=== PATIENT | female | born 1990 | race Asian ===

== ENCOUNTER 2025-06-07 01:23 | Observation (INO) | payer OTHER, SELFPAY ==
[2025-06-06 14:09] VITALS: BP 150/91
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
[2025-06-06 16:19] LABS: HCG, Serum Qualitative Screen Positive
[2025-06-06 16:39] LABS: Hematocrit 42.4 % (37.0-47.0); Hemoglobin 13.8 g/dL (12.0-16.0); Mean Corp Hgb Conc. 32.5 g/dL (33.0-37.0); Mean Corpuscular Volume 76.8 fL (81.0-99.0); Nucleated Red Blood Cells % 0 %; Platelet Count 289 10^3/uL (130-400); Red Cell Dist. Width 12.5 % (11.5-14.5)
[2025-06-06 17:13] LABS: ALT (SGPT) 15 U/L (0-35); AST (SGOT) 30 U/L (14-36); Acetaminophen < 10 ug/ml (10-30); Albumin 5.3 g/dl (3.5-5.0); Alkaline Phosphatase 97 U/L (38-126); Blood Urea Nitrogen 18 mg/dl (7-17); Calcium 10.6 mg/dl (8.4-10.2); Carbon Dioxide 16 mmol/L (22-30); Chloride 109 mmol/L (98-107); Glucose 93 mg/dl (70-99); Potassium 4.3 mmol/L (3.5-5.1); Salicylate < 1.0 mg/dl (2.0-20.0); Sodium 139 mmol/L (135-145); Total Protein 9.4 g/dl (6.3-8.2); eGFR > 60.00
[2025-06-06 17:26] LABS: Beta HCG Quantitative 157.14 mIU/ml
[2025-06-06 18:25] LABS: Urine Character Clear (Clear)
[2025-06-06 18:45] LABS: Urine Squamous Cell 0-2 /LPF (Few)
[2025-06-06 18:46] LABS: Urine Red Blood Cell 0-2 /HPF (0-2)
[2025-06-06 19:18] VITALS: BP 146/100
[2025-06-06 19:46] VITALS: BMI 24.2
[2025-06-06 20:38] VITALS: BP 148/100
[2025-06-06 21:52] VITALS: BP 129/91
[2025-06-06] MEDS: NSS 1000 IV (21:56)
[2025-06-06 22:29] LABS: Venous Blood Gas B.E. -1.0 mmol/L (-4 to +4); Venous Blood Gas O2 Sat % 87.4 %
[2025-06-06 23:50] VITALS: BP 125/79
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
[2025-06-07] MEDS: NSS 1000 IV (00:05)
[2025-06-07 00:54] VITALS: BP 125/88
[2025-06-07] MEDS: ZOFRAN 4 MG IV (02:29)
[2025-06-07 02:32] VITALS: BP 125/92
[2025-06-07 03:03] VITALS: BMI 24.8
[2025-06-07 07:50] VITALS: BP 139/99
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
[2025-06-07 13:08] VITALS: BMI 24.8
[2025-06-07] MEDS: ROCEPHIN IV (14:19)
[2025-06-07] MEDS: STERILE WATER FOR INJECTION IV (14:19)
[2025-06-07 15:40] VITALS: BP 134/93
[2025-06-07] MEDS: SEROQUEL 50 MG PO ×2 (17:03→22:18)
[2025-06-07] MEDS: STERILE WATER FOR INJECTION 10 ML IV (17:12)
[2025-06-07] MEDS: ROCEPHIN 1000 MG IV (17:12)
[2025-06-07] MEDS: FLUSH (NSS) 2 FLUSH IV (17:12)
[2025-06-07 23:00] VITALS: BP 138/95
[2025-06-08 07:12] VITALS: BP 139/97
[2025-06-08] MEDS: ATIVAN 1 MG IV (12:45)
[2025-06-08] MEDS: FLUSH (NSS) 2 FLUSH IV ×2 (12:49→18:27)
--- NOTE | 2025-06-08 14:46 | W.PN.UPDATE ---
Update Note
Progress Note Update
Patient finally agreed to have her MRI done but is sedated from the Ativan. Apparently after taking the Seroquel last night she slept well but in the AM was still paranoid and agitated. Family is very uninterested in impatient treatment worrying
about the environment there as well as not being able to be with her constantly . The whole extended family is with her now and her parent actually live with her . It is also true that admission to an inpatient psychiatric facility for someone who
is is challenging to say the least.
Presently the patient is not acutely psychotic and is cooperative with taking medications. They understand the potential side effects of the Seroquel as well as possible teratogenic effects.
I discussed the situation with the hospitalist Dr. Leong and the plan now is as long she she does not significantly decompensate to discharge home with Seroquel 50 mg bid. I will ask the psychiatrist on duty tomorrow to see her and provided
them with referral options and also get input from CM.
--- NOTE | 2025-06-08 15:01 | W.PN.HOSP.TC ---
Today's Communication/Plan
-
Assessment / Plan
Assessment / Plan
General: No Apparent Distress, Comfortable
HEENT: NormoCephalic, Moist mucous membranes, Atraumatic
Respiratory: Clear and Non Labored Respirations
Cardiac: S1/S2 and Regular Rhythm; No Rub or Gallop
GI: Soft, Non Tender, Non Distended and Normal Bowel Sounds
Musculoskeletal: No Edema, no deformity
Skin: Warm and dry
: NO Christensen
Neuro: Awake, Alert, Nonfocal/grossly intact
Psych: Flight of ideas, paranoid
Ms. Lizarraga is a 34-year-old female with a medical history of iron deficiency anemia (on oral iron supplementation) who presented due to acute behavioral changes. Her family is at bedside and very helpful in augmenting the HPI. 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 Apparently she has been having paranoid thoughts and delusions that started during an Uber ride to the airport in
[facility]. The patient believed her [employer] o[employer] company driver was attempting to change the destination in her phone in order to bring her somewhere other than to the airport. She also thinks that her phone might be bugged and is paranoid that people are working
against her. She has not eaten or slept since returning home. She appears to be having a manic/acute psychotic episode. She has no prior psychiatric history. Her workup for organic reversible causes of her symptoms have so far been unremarkable.
She had a mild leukocytosis, bacteriuria, and a mildly low serum bicarb level. She has no urinary symptoms. Her mild metabolic acidosis is likely due to starvation ketosis considering her poor recent p.o. intake. CT imaging of the brain was
unremarkable. She did have a positive test, which she was already aware of because she had taken a test at home. She has remained afebrile and normotensive. The ED physician discussed admission for medical observation with the patient,
her , and psychiatry. She has been admitted for further evaluation and management.
Acute psychotic episode:
- No psychiatric history, appears to be her first episode
- No organic causes to otherwise explain her presentation, toxicology screen is negative, CT brain unremarkable, MRI brain is likely of little value but was ordered anyway and results are pending
- May possibly have a UTI which at most could have contributed to triggering the psychotic episode although this is doubtful, however would treat this with 5-7 days of antibiotics only considering her positive test
- Patient is extremely paranoid with flight ideas and requiring frequent redirection, does not have capacity for medical decision making at this time and should not be allowed to leave AGAINST MEDICAL ADVICE
- Psychiatry recommending treatment with Seroquel 50 mg twice daily, if remains stable/improved tomorrow morning 06/09 would be reasonable to discharge her home in the care of her family
- Have discussed extensively with family need to be sure she takes her medications, if she deteriorates or if they have difficulty caring for they should bring her back to the emergency department with the expectation that she would need involuntary
commitment for ongoing psychiatric care
- Case management aware of the plan and will provide family resources for outpatient psychiatric follow-up
Mild gapped metabolic acidosis:
- Bicarb of 16, suspect starvation ketosis in the setting of very poor recent p.o. intake
- Was bolused 2 L resuscitative fluids, remains hemodynamically stable
- Patient currently not cooperating with repeat labs
- Patient has agreed to some p.o. intake with encouragement
DVT prophylaxis: SCDs
CODE STATUS: Full code
Total time spent on today's encounter was 55 minutes
Anticipated Discharge: 24 - 48 hours
Subjective/Interval History
-
Date of Service: June 08, 2025
Patient was seen and examined at bedside this morning. Appears more calm today. Started on Seroquel yesterday.
Objective Data
-
Vital Signs:
Vital Signs
Temp Pulse Resp BP Pulse Ox
98.8 F 106 16 139/97 100
06/08/25 07:12 06/08/25 07:12 06/08/25 07:12 06/08/25 07:12 06/08/25 07:12
I&O
06/07/25 06/08/25 06/09/25
06:59 06:59 06:59
Intake Total 480 / 480
Balance 480 / 480
Review of Systems
-
Unable to obtain full review of systems at this time due to: Other (Patient unwilling to discuss)
Physical Exam
-
General: No Apparent Distress
[2025-06-08 15:55] VITALS: BP 133/85
[2025-06-08] MEDS: STERILE WATER FOR INJECTION 10 ML IV (18:27)
[2025-06-08] MEDS: ROCEPHIN 1000 MG IV (18:27)
[2025-06-08] MEDS: SEROQUEL 50 MG PO (20:20)
[2025-06-08 23:00] VITALS: BP 125/86
[2025-06-08 23:14] VITALS: BP 125/86
[2025-06-09 07:12] VITALS: BP 134/86
[2025-06-09] MEDS: SEROQUEL 50 MG PO (08:13)
--- NOTE | 2025-06-09 10:14 | W.PN.UPDATE ---
Update Note
Progress Note Update
pt seen by me today, also saw her father, brother (abrasive sawyer) and . 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
While in uber to airport became paranoid that uber hearse driver was not taking her to the right place, feared assault. Called who calmed her down, got her to plane and home, picked her up at airport. Dis not want to eat or drink went she got
home. Brought her to hospital for evaluaion, where paranoia was still noted. Has been on seroquel 50 mg bid, calmer.
Wants to go home, family supports this, many family members there.
No prior history of psychosis, but had seen therapist 5 years ago due to excessive worry about surgery for hyperparathyroidism. did well with therapy and with surgery, has had followup labs with PCP, per have been fine.
Had miscarriage 2 years ago at 6 weeks, not sure why.
On exam today patient is pleasant but just a bit guarded. Reassures me that she is fine, wants ot go home to her 4 yo son to make sure he is well fed (said this twice.) son had had delivery complications ,was in NICU for two and a half weeks.
Does not have an explanation for her paranoia, but does not want to talk much about it. I asked her about her life and development, assures me all was normal. when I asked specific questions mentioned some bullying.
I had asked pt about other medical problems or previous psychiatric care, denied all. was the one who told me about her parathyroid surgery and previous therapy.
Calcium 10.6, UA shows many bacteria.
Case discussed with primary Dr. Wagner, will consider getting additional testing or referrals for further ob, endocrine care.
I recommend continued seroquel, will see about followup this week here.
--- NOTE | 2025-06-09 10:29 | CM ---
CM following re: discharge planning.
Reviewed pt's chart, met with pt. Pt's , pt's son, pt's brother and pt's father at bedside. Pt's is a pharmacist and pt's brother is a MD.
Pt is a 34 year old female, admitted with OBS status and primary dx of new onset of paranoia. OBS status explained to the pt and her family, pt politely declined to sign, has a copy, OBS letter placed on chart.
Pt reports she lives with and 4 year old son in a 2SH, 1 step to enter, has supportive family. 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 Pt denied psychiatric
history and did state that she had psychotherapy services right before her thyroid surgery 4 years ago and pt stated is was for a short period of time when she was very anxious about her surgery.
Psychiatry evaluation noted, medical and psychosocial components might contribute to pt's paranoia. Medical follow ups with outpatient psychiatric services including psychiatrist, IOP recommended. Both pt and her family strongly agree to follow up
with Dr. Chan Smith this week. Printed information with phone numbers of recommended psychiatrists Dr. Mansi Cyr MD and Bhmui Charels MD given to the pt. Also, pt is referred to [facility].
[facility]: [facility]. Pt stated last time she had an appointment with her PCP last year.
Pharmacy: [facility].
D/C plan: home with [facility], psychiatrist to follow up this week, PCP to follow up and family support. to transport.
--- NOTE | 2025-06-09 11:10 | W.DS.TRANS ---
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
-
Discharge Instructions:
Discharge Diagnosis/Procedures Acute psychosis with ongoing work up
Diet Regular
Instructions:
Stand-Alone Forms:
Changes to Home Medications: Yes
Discharge Medications:
DC Medications w/original date entered in datatracker
ferrous sulfate 325 mg (65 mg iron) tablet (iron) 325 mg PO DAILY Supplement 06/07/25
[id number] 1 mg tablet See Rx Instructions .Route .COMPLEX Supplement 06/07/25
cephalexin 500 mg capsule 500 mg PO Q12H #6 caps 06/09/25
quetiapine 25 mg tablet 50 mg (2 x 25 mg) PO BID #60 tabs 06/09/25
Home Medication Changes
Seroquel, Cephalexin added
Pending Results: Yes
Additional Pending Results:
Intact PTH, Ionized Ca
[2025-06-09] MEDS: STERILE WATER FOR INJECTION IV (12:00)
[2025-06-09] MEDS: ROCEPHIN IV (12:00)
[2025-06-09 12:41] VITALS: BP 133/93
== END 2025-06-09 13:10 | disposition home or self-care (01) ==
LOC: 2 NORTH 01:23
PROVIDERS: ADMITTING PHYSICIAN Internal Medicine; ATTENDING PHYSICIAN Internal Medicine; CONSULT PHYSICIAN Psychiatry & Neurology Psychiatry; EMERGENCY PHYSICIAN Emergency Medicine
DX: F23 Brief psychotic disorder (principal); O26.899 Other specified pregnancy related conditions, unspecified trimester; E87.20 Acidosis, unspecified; T73.0XXA Starvation, initial encounter; X58.XXXA Exposure to other specified factors, initial encounter; Z3A.00 Weeks of gestation of pregnancy not specified; Z79.899 Other long term (current) drug therapy; E86.0 Dehydration; E83.52 Hypercalcemia; D72.829 Elevated white blood cell count, unspecified
CPT/HCPCS: 70450; 70551; 80053; 80143; 80179; 80306; 81003; 81015; 82077; 82805; 84443; 84702; 84703; 85025; 87086; 93005; 96360; 96361; 99285; G0378